=== PATIENT | female | born 1975 | race Caucasian/White ===

== ENCOUNTER 2019-07-22 16:10 | Emergency (ER) | payer BC, OTHER ==
[2019-07-22 16:38] VITALS: BP 129/76
--- NOTE | 2019-07-22 16:57 | UC ---
Abdominal Pain Female HPI - HPI Summary HPI Summary: Pt presents with c/o sudden on onset of pelvic/abdominal pain nabil twoke her from her sleep this morning at 3 am. Pt denies nausea, vomiting, constipation, or diarrhea. Denies urinary symptoms or hx of GI disorders. - History of Current Complaint Chief Complaint: UCAbdominalPain Stated Complaint: ABDOMINAL PAIN Time Seen by Provider: 07/22/19 16:39 Hx Obtained From: Patient Hx Last Menstrual Period: 07/02/19 ?: No Onset/Duration: Sudden Onset, Lasting Hours Timing: Constant Severity Initially: Moderate Severity Currently: Moderate Pain Intensity: 7 Location: Diffuse, Suprapubic Radiates: Yes Radiates to: Back Character: Aching, Sharp Aggravating Factor(s): Nothing Alleviating Factor(s): Nothing Associated Signs and Symptoms: Positive: Negative - Risk Factors Ectopic Risk Factor: Negative Ovarian Torsion Risk Factor: Negative Allergies/Adverse Reactions: Allergies Allergy/AdvReac Type Severity Reaction Status Date / Time dinoprostone [From Cervidil] Allergy See Comment Verified 07/22/19 16:30 Home Medications: Home Medications ALPRAZolam [Xanax] 1 tab PO ONCE PRN 07/22/19 [History Confirmed 07/22/19] Cyclobenzaprine TAB* [Flexeril 10 MG TAB*] 1 tab PO TID PRN 07/22/19 [History Confirmed 07/22/19] Escitalopram * [Lexapro *] 1 tab PO DAILY 07/22/19 [History Confirmed 07/22/19] PMH/Surg Hx/FS Hx/Imm Hx Previously Healthy: Yes - Surgical History Surgical History: Yes Surgery Procedure, Year, and Place: tubal- 2011. gastric bypass 08/22/2016 - Family History Known Family History: Positive: Cardiac Disease - Social History Occupation: Employed Full-time Lives: With Family Alcohol Use: Rare Substance Use Type: None Smoking Status (MU): Never Smoked Tobacco Have You Smoked in the Last Year: No - Immunization History Most Recent Tetanus Shot: 2006 Review of Systems All Other Systems Reviewed And Are Negative: Yes Constitutional: Positive: Negative Skin: Positive: Negative Eyes: Positive: Negative ENT: Positive: Negative Respiratory: Positive: Negative Cardiovascular: Positive: Negative Gastrointestinal: Positive: Abdominal Pain Genitourinary: Positive: Negative Motor: Positive: Negative Neurovascular: Positive: Negative Musculoskeletal: Positive: Negative Neurological: Positive: Negative Psychological: Positive: Negative Is Patient Immunocompromised?: No Physical Exam Triage Information Reviewed: Yes Appearance: Well-Appearing, No Pain Distress Vital Signs: Initial Vital Signs Temp 99.3 F 07/22/19 16:32 Pulse 64 07/22/19 16:32 Resp 16 07/22/19 16:32 BP 129/76 07/22/19 16:32 Pulse Ox 100 07/22/19 16:32 Vital Signs Reviewed: Yes Eye Exam: Normal ENT Exam: Normal Dental Exam: Normal Neck exam: Normal Respiratory Exam: Normal Cardiovascular Exam: Normal Abdomen Description: Positive: Other: - c/o pain from umbilicus and below. NO guarding, no rebound tenderness Bowel Sounds: Positive: Present Musculoskeletal Exam: Normal Neurological Exam: Normal Psychological Exam: Normal Skin Exam: Normal Abd Pain Female Course/Dx - Course Course Of Treatment: Pt was recommended to go to closest ER for further evaluation and testing. - Differential Dx/Diagnosis Differential Diagnosis: Appendicitis, Constipation, Diverticulitis, Urinary Tract Infection Provider Diagnosis: Abdominal pain Discharge ED - Sign-Out/Discharge Documenting (check all that apply): Patient Departure All imaging exams completed and their final reports reviewed: No Studies - Discharge Plan Condition: Stable Disposition: HOME-RECOMMEND TO ED Patient Education Materials: Acute Abdominal Pain (ED) Referrals: Sanchez Nolasco MD [Primary Care Provider] - As Soon As Possible Additional Instructions: It is recommended that you go now directly to the closest emergency room for further evaluation and testing. - Billing Disposition and Condition Condition: STABLE Disposition: Home-Recommend to ED - Attestation Statements Provider Attestation: I was available for consult. This patient was seen by the FRANCISCO JAVIER. The patient was not presented to , seen by or examined by mi -Maricruz Ibrahim MD
== END 2019-07-22 17:05 | disposition home health service (06) ==
LOC: UCCORT 16:10
DX: R10.33 Periumbilical pain (principal); Z88.8 Allergy status to other drugs, medicaments and biological substances
CPT/HCPCS: 81003; 84702; 99202; G0463